=== PATIENT | female | born 2000 | race Caucasian/White ===

== ENCOUNTER → 2021-11-15 | Emergency (ER) | payer OTHER ==
[~2021-11-15] VITALS: Ht 154.9 cm; Wt 56.7 kg
[~2021-11-15] MED LIST: IBUPROFEN 400 MG TABLET ONE; IBUPROFEN 400 MG TABLET PO ONE; LORAZEPAM 0.5 MG TABLET ONE; LORAZEPAM 0.5 MG TABLET PO ONE
--- NOTE | 2021-11-15 21:05 | NUR ---
PT CAME FROM HOME A/O X 3. C/O LT SIDED CP STARTED TODAY AT 1600. PAIN 4/10 MOSTLY WITH MOVEMENT. DENIES ANY OTHER SYMPTOMS. PT CONEECTED TO MONITOR V/S STABLE.
--- NOTE | 2021-11-15 22:54 | NUR ---
Discharge instructions given to pt. pt stable left ambulation in stable condition
[2021-11-15 23:13] VITALS: BP 118/67
== END | disposition home or self-care (01) ==
LOC: ER 20:03
DX: R07.89 Other chest pain (principal)
CPT/HCPCS: 71045-TC

== ENCOUNTER 2022-01-30 04:01 | Emergency (ER) | payer OTHER ==
[~2022-01-30] VITALS: Ht 154.9 cm; Wt 59.4 kg
[2022-01-30] MEDS ORDERED: ONDANSETRON HCL/PF 4 MG/2 ML VIAL ONE (04:27)
[2022-01-30] MEDS ORDERED: MORPHINE SULFATE INJ 4 MG/ML DISP.SYRIN ONE (04:27)
[2022-01-30] MEDS: MORPHINE SULFATE INJ 2 MG/ML DISP.SYRIN IV ONE (04:28)
[2022-01-30] MEDS: IV NS 0.9% 500 ML BAG IV ONE (04:28)
[2022-01-30] MEDS: ONDANSETRON HCL/PF 4 MG/2 ML VIAL IVP ONE (04:28)
--- NOTE | 2022-01-30 04:29 | NUR ---
TAKEN TO RADIOLOGY
[2022-01-30] MEDS ORDERED: IOHEXOL-300 100 ML VIAL IV ONE (04:33)
[2022-01-30 04:46] LABS: BASOPHILS % (AUTO) 0.1 % (0.0-2.0); EOSINOPHILS % (AUTO) 0.2 % (0.0-6.0); HEMATOCRIT 36 % (33-45); HEMOGLOBIN 11.8 g/dL (11.5-14.8); LYMPHOCYTES # (AUTO) 2.1 K/uL (0.8-4.8); LYMPHOCYTES % (AUTO) 19.1 % (20.0-44.0); MEAN CORPUSCULAR HGB CONC 33 g/dl (31.0-36.0); MEAN CORPUSCULAR VOLUME 74 fL (82-100); MONOCYTES # (AUTO) 0.6 K/uL (0.1-1.30); MONOCYTES % (AUTO) 5.5 % (2.0-12.0); NEUTROPHILS # (AUTO) 8.4 K/uL (1.8-8.9); NEUTROPHILS % (AUTO) 75.1 % (43.0-81.0); PLATELET COUNT (AUTO) 163 K/uL (150-450); RED BLOOD CELL COUNT(AUTO) 4.83 MIL/uL (4.0-5.2); WHITE BLOOD COUNT (AUTO) 11.2 K/uL (4.3-11.0)
[2022-01-30 04:57] LABS: ALANINE AMINOTRANSFERASE 19 U/L (12-78); ALBUMIN 4.1 g/dL (3.4-5.0); ALCOHOL, BLOOD < 3 mg/dL (0-0); ALKALINE PHOSPHATASE 70 U/L (46-116); ASPARTATE AMINOTRANSFERASE 18 U/L (15-37); BILIRUBIN,DIRECT 0.1 mg/dL (0.0-0.2); BILIRUBIN,TOTAL 0.4 mg/dL (0.2-1.0); CALCIUM, SERUM 9.1 mg/dL (8.5-10.1); CARBON DIOXIDE 26 mmol/L (21-32); CHLORIDE 103 mmol/L (98-107); CREATININE 0.7 mg/dL (0.6-1.3); GLUCOSE 100 mg/dL (74-106); POTASSIUM 3.2 mmol/L (3.5-5.1); SODIUM SERUM 137 mmol/L (136-145); TOTAL PROTEIN, SERUM 7.5 g/dL (6.4-8.2); UREA NITROGEN, BLOOD 10 mg/dL (7-18)
--- NOTE | 2022-01-30 05:35 | NUR ---
CALLED [facility] TO HAVE IMAGES READ. PER [facility], NO IMAGES ARE ON THEIR SYSTEM
--- NOTE | 2022-01-30 05:36 | NUR ---
CALLED RADIOLOGY TO SEND IMAGES TO [facility].
[2022-01-30] MEDS ORDERED: HYDR-4275 PO (06:01)
--- NOTE | 2022-01-30 06:15 | NUR ---
Patient discharged to home in stable condition. Written and verbal after care instructions given. Patient verbalizes understanding of instruction.
[2022-01-30 06:16] VITALS: BP 132/70
[2022-01-30 07:05] LABS: BILIRUBIN,URINE NEGATIVE (NEGATIVE); COLOR,URINE YELLOW (YELLOW); LEUKOCYTE ESTERASE ,URINE NEGATIVE (NEGATIVE); NITRITE, URINE NEGATIVE (NEGATIVE); PH,URINE 6.5 (5.0-8.0); PROTEIN,URINE NEGATIVE (NEGATIVE); UGLUCOSE NEGATIVE (NEGATIVE); UROBILINOGEN,URINE 0.2 EU/dL (0.2)
[2022-01-30 10:14] LABS: BACTERIA,URINE NP[ /HPF (None Seen)
== END 2022-01-30 07:19 | disposition home or self-care (01) ==
LOC: ER 04:06
DX: S00.83XA Contusion of other part of head, initial encounter (principal); S20.219A Contusion of unspecified front wall of thorax, initial encounter; S30.1XXA Contusion of abdominal wall, initial encounter; K55.029 Acute infarction of small intestine, extent unspecified; Z79.891 Long term (current) use of opiate analgesic; V89.2XXA Person injured in unspecified motor-vehicle accident, traffic, initial encounter; Y93.89 Activity, other specified; Y92.89 Other specified places as the place of occurrence of the external cause; Y99.8 Other external cause status
CPT/HCPCS: 36415; 70450; 70486; 71260; 72125; 74177; 80048; 80076; 80307; 80320; 81001; 84703; 85025; 85730; 86850; 96361; 96374; 96375; 99285; J2270; J2405; J7040; Q9967; G0480

== ENCOUNTER 2022-12-15 14:48 | Emergency (ER) | payer OTHER ==
[~2022-12-15] VITALS: Ht 154.9 cm; Wt 49.9 kg
[~2022-12-15 14:48] MED LIST changes: +HYDR-4275 PO; -IBUPROFEN 400 MG TABLET ONE; -IBUPROFEN 400 MG TABLET PO ONE; -LORAZEPAM 0.5 MG TABLET ONE; -LORAZEPAM 0.5 MG TABLET PO ONE
--- NOTE | 2022-12-15 15:10 | NUR ---
[facility]IBMOTHER C/O COUGH CONGESTION FOR 2 HOURS. AMBULATORY, PLACED IN BED, BREATHING EVEN AND UNLABORED SATURATING AT 98%RA.
--- NOTE | 2022-12-15 15:23 | NUR ---
SWAB FOR COVID19, RAPID INFLUENZA AND URINE SAMPLE SENT TO LAB
[2022-12-15] MEDS ORDERED: FAMOTIDINE (20 MG) 20 MG TABLET ONE (15:27)
[2022-12-15] MEDS ORDERED: ONDANSETRON 4 MG TAB.RAPDIS ONE (15:27)
[2022-12-15] MEDS ORDERED: ONDANSETRON 4 MG TAB.RAPDIS SL ONE (15:30)
[2022-12-15] MEDS ORDERED: FAMOTIDINE (20 MG) 20 MG TABLET PO ONE (15:30)
[2022-12-15 16:33] LABS: BILIRUBIN,URINE NEGATIVE (NEGATIVE); COLOR,URINE YELLOW (YELLOW); LEUKOCYTE ESTERASE ,URINE NEGATIVE (NEGATIVE); NITRITE, URINE NEGATIVE (NEGATIVE); PROTEIN,URINE NEGATIVE (NEGATIVE); UGLUCOSE NEGATIVE (NEGATIVE); UROBILINOGEN,URINE 0.2 EU/dL (0.2)
[2022-12-15 16:42] LABS: BACTERIA,URINE 2+ /HPF (None Seen); RBC,URINE 0-2 /HPF (0-2); SQUAMOUS EPITHELIAL CELL,UR 21-50 /HPF (None Seen)
--- NOTE | 2022-12-15 17:50 | NUR ---
Patient discharged to home in stable condition. Written and verbal after care instructions given. Patient verbalizes understanding of instruction.
[2022-12-15 17:51] VITALS: BP 130/80
== END 2022-12-15 17:50 | disposition home or self-care (01) ==
LOC: ER 14:51
DX: J11.1 Influenza due to unidentified influenza virus with other respiratory manifestations (principal); Z79.899 Other long term (current) drug therapy; Z20.822 Contact with and (suspected) exposure to COVID-19
CPT/HCPCS: 99283; 87426; 87804 ×2; 87086; 84703; 81001; Q0162; C9803

== ENCOUNTER → 2024-02-26 | Emergency (ER) | payer OTHER ==
[~2024-02-26] VITALS: Ht 154.9 cm; Wt 47.6 kg
[~2024-02-26] MED LIST changes: +CT SWABBABLE VALVE TRANS SET 1 EA INFUS.SET MC ONE; +IOHEXOL-300 100 ML VIAL IV ONE; +IV NS 0.9% 250 ML IV ONE; +KETOROLAC TROMETHAMINE 15 MG/ML VIAL ONE; +ONDA4TAB5 PO; +ONDANSETRON HCL/PF 4 MG/2 ML VIAL ONE; +PANTOPRAZOLE 40 MG VIAL ONE; +POLY119P2 PO
[2024-02-26 18:29] LABS: APPEARANCE,URINE Clear (CLEAR); BILIRUBIN,URINE Negative (NEGATIVE); BLOOD, URINE Moderate Ery/uL (NEGATIVE); COLOR,URINE YELLOW (YELLOW); KETONES,URINE Negative (NEGATIVE); LEUKOCYTE ESTERASE ,URINE Negative (NEGATIVE); NITRITE, URINE Negative (NEGATIVE); PROTEIN,URINE Negative (NEGATIVE); UGLUCOSE Negative (NEGATIVE); UROBILINOGEN,URINE 0.2 EU/dL (0.2)
[2024-02-26] MEDS: KETOROLAC TROMETHAMINE 15 MG/ML VIAL IV ONE (18:30)
[2024-02-26] MEDS: PANTOPRAZOLE 40 MG VIAL IV ONE (18:30)
[2024-02-26] MEDS: ONDANSETRON HCL/PF 4 MG/2 ML VIAL IVP ONE (18:30)
[2024-02-26 18:31] LABS: PREGNANCY TEST URINE QUAL NEGATIVE (NEGATIVE)
[2024-02-26 18:41] LABS: ADD URINE CULTURE NO; BACTERIA,URINE Few /HPF (None Seen); SQUAMOUS EPITHELIAL CELL,UR Few /HPF (None Seen); WBC,URINE 0-2 /HPF (0-3)
[2024-02-26 18:48] LABS: LYMPHOCYTES # (AUTO) 1.4 K/uL (0.8-4.8); MEAN CORPUSCULAR HGB CONC 31 g/dl (31.0-36.0); MONOCYTES # (AUTO) 0.3 K/uL (0.1-1.30); NEUTROPHILS # (AUTO) 1.9 K/uL (1.8-8.9); RED BLOOD CELL COUNT(AUTO) 4.79 MIL/uL (4.0-5.2); WHITE BLOOD COUNT (AUTO) 3.6 K/uL (4.3-11.0)
[2024-02-26 18:52] LABS: BASOPHILS % (AUTO) 0.7 % (0.0-2.0); EOSINOPHILS % (AUTO) 0.9 % (0.0-6.0); HEMATOCRIT 34 % (33-45); HEMOGLOBIN 10.8 g/dL (11.5-14.8); LYMPHOCYTES % (AUTO) 38.9 % (20.0-44.0); MEAN CORPUSCULAR HEMOGLOBIN 23 PG (26.0-33.0); MEAN CORPUSCULAR VOLUME 72 fL (82-100); MONOCYTES % (AUTO) 8.3 % (2.0-12.0); NEUTROPHILS % (AUTO) 51.2 % (43.0-81.0); PLATELET COUNT (AUTO) 165 K/uL (150-450); RED CELL DISTRIBUTION WIDTH 15.7 % (11.5-15.0)
[2024-02-26] MEDS: IV NS 0.9% 1,000 ML BAG IV ONE (18:54)
[2024-02-26 18:56] LABS: CALCIUM, SERUM 8.6 mg/dL (8.5-10.1); CREATININE 0.7 mg/dL (0.6-1.3); POTASSIUM 3.6 mmol/L (3.5-5.1)
[2024-02-26 19:02] LABS: ALBUMIN 3.8 g/dL (3.4-5.0); BILIRUBIN,DIRECT 0.1 mg/dL (0.0-0.2); BILIRUBIN,TOTAL 0.4 mg/dL (0.2-1.0); TOTAL PROTEIN, SERUM 7.1 g/dL (6.4-8.2)
[2024-02-26 21:05] VITALS: BP 118/78; TEMP 97.1; O2SAT 98
== END | disposition home or self-care (01) ==
LOC: ER 17:13
DX: K59.00 Constipation, unspecified (principal); R10.13 Epigastric pain; R11.2 Nausea with vomiting, unspecified
CPT/HCPCS: 99285; 74177; 96374; 96375; 96361; 85025; 80048; 83690; 80076; 84703; 81001; 36415; J2405; J7030; J7050; C9113; Q9967; J1885

== ENCOUNTER 2024-10-06 18:44 | Emergency (ER) | payer OTHER ==
[~2024-10-06] VITALS: Ht 154.9 cm; Wt 49.9 kg
[~2024-10-06 18:44] MED LIST changes: -CT SWABBABLE VALVE TRANS SET 1 EA INFUS.SET MC ONE; -IOHEXOL-300 100 ML VIAL IV ONE; -IV NS 0.9% 250 ML IV ONE; -KETOROLAC TROMETHAMINE 15 MG/ML VIAL ONE; -ONDANSETRON HCL/PF 4 MG/2 ML VIAL ONE; -PANTOPRAZOLE 40 MG VIAL ONE
[2024-10-06] MEDS ORDERED: ONDANSETRON HCL/PF 4 MG/2 ML VIAL ONE ×2 (19:55→20:42)
[2024-10-06] MEDS: ONDANSETRON HCL/PF 4 MG/2 ML VIAL IVP ONE (20:01)
[2024-10-06] MEDS: IV NS 0.9% 1,000 ML BAG IV ONE (20:01)
[2024-10-06 20:05] LABS: BASOPHILS % (AUTO) 0.4 % (0.0-2.0); LYMPHOCYTES # (AUTO) 0.9 K/uL (0.8-4.8); MONOCYTES # (AUTO) 0.4 K/uL (0.1-1.30)
[2024-10-06 20:14] LABS: EOSINOPHILS % (AUTO) 0.1 % (0.0-6.0); HEMATOCRIT 39 % (33-45); HEMOGLOBIN 12.5 g/dL (11.5-14.8); MEAN CORPUSCULAR HEMOGLOBIN 24 PG (26.0-33.0); MEAN CORPUSCULAR HGB CONC 32 g/dl (31.0-36.0); MEAN CORPUSCULAR VOLUME 74 fL (82-100); MONOCYTES % (AUTO) 5.3 % (2.0-12.0); NEUTROPHILS # (AUTO) 5.7 K/uL (1.8-8.9); NEUTROPHILS % (AUTO) 81.2 % (43.0-81.0); PLATELET COUNT (AUTO) 126 K/uL (150-450); RED BLOOD CELL COUNT(AUTO) 5.19 MIL/uL (4.0-5.2); RED CELL DISTRIBUTION WIDTH 15.2 % (11.5-15.0)
[2024-10-06 20:21] LABS: ALBUMIN 4.5 g/dL (3.4-5.0); BILIRUBIN,DIRECT 0.2 mg/dL (0.0-0.2); BILIRUBIN,TOTAL 0.8 mg/dL (0.2-1.0); CALCIUM, SERUM 9.5 mg/dL (8.5-10.1); CREATININE 0.8 mg/dL (0.6-1.3); POTASSIUM 3.6 mmol/L (3.5-5.1); TOTAL PROTEIN, SERUM 8.3 g/dL (6.4-8.2)
[2024-10-06] MEDS: ONDANSETRON HCL/PF 4 MG/2 ML VIAL IV ONE (20:44)
[2024-10-06] MEDS ORDERED: ONDA4TAB5 PO (21:22)
[2024-10-06 21:37] VITALS: BP 121/79; TEMP 98.6; O2SAT 99
== END 2024-10-06 21:40 | disposition home or self-care (01) ==
LOC: ER 18:49
DX: K52.9 Noninfective gastroenteritis and colitis, unspecified (principal); R10.9 Unspecified abdominal pain; R11.2 Nausea with vomiting, unspecified
CPT/HCPCS: 99285; 96374; 76705; 96361; 96376; 85025; 80048; 83690; 80076; 36415; J2405 ×2; J7030

== ENCOUNTER 2025-01-01 08:36 | Emergency (ER) | payer OTHER ==
[~2025-01-01] VITALS: Ht 154.9 cm; Wt 49.9 kg
[2025-01-01 08:43] VITALS: BP 108/63; TEMP 98.6
[2025-01-01 09:37] VITALS: O2SAT 97
== END 2025-01-01 09:37 | disposition home or self-care (01) ==
LOC: ER 08:36
DX: M79.645 Pain in left finger(s) (principal); R20.2 Paresthesia of skin